=== PATIENT | male | born 1995 | race African-American/Black ===

== ENCOUNTER 2017-04-10 15:46 | Emergency (ER) | payer OTHER ==
[2017-04-10 17:21] LABS: BASOPHILS 0.4 %; BASOPHILS ABSOLUTE 0.03 10/3/uL (0.0-0.16); EOSINOPHILS 3.6 %; EOSINOPHILS ABSOLUTE 0.29 10/3/uL (0.0-0.53); ER CBC TAT 0 Hrs 08 Mins; HEMATOCRIT 41.4 % (40.0-51.0); HEMOGLOBIN 14.1 g/dL (13.6-17.8); IMMATURE GRANULOCYTES 0.1 %; IMMATURE GRANULOCYTES ABSOLUTE 0.01 10/3/uL (0.0-0.11); LYMPHOCYTES 28.1 %; LYMPHOCYTES ABSOLUTE 2.29 10/3/uL (0.67-4.30); MANUAL DIFF NO %; MEAN CORPUS HGB CONC 34.1 g/dL (32.0-36.0); MEAN CORPUSCULAR VOLUME 88.1 fL (80-100); MEAN PLATELET VOLUME 11.9 fL (9.2-13.0); MONOCYTES 8.5 %; MONOCYTES ABSOLUTE 0.69 10/3/uL (0.21-1.20); NEUTROPHILS 59.3 %; NEUTROPHILS ABSOLUTE 4.85 10/3/uL (2.02-8.40); PLATELET COUNT 176 10/3/uL (150-400); RBC DISTRIBUTION WIDTH 14.5 % (12.0-16.0); WHITE BLOOD CELLS 8.2 10/3/uL (4.5-10.5)
[2017-04-10 17:36] LABS: A/G RATIO 1.1 (0.7-1.9); ALBUMIN 4.2 G/DL (3.5-5.0); ALKALINE PHOSPHATASE 62 U/L (45-117); BUN (BLOOD UREA NITROGEN) 12 MG/DL (6-23); CALCIUM, SERUM 9.3 MG/DL (8.5-10.4); CO2 (CARBON DIOXIDE) 20 MMOL/L (24-34); CREATININE 1.14 MG/DL (0.70-1.30); GFR AFRICAN AMERICAN 105 ML/MIN (>=60); GFR NON AFRICAN AMERICAN 91 ML/MIN (>=60); GLOBULIN 3.8 G/DL (2.5-4.1); GLUCOSE, SERUM 80 MG/DL (60-99); SGOT(AST) 12 U/L (5-40); SGPT(ALT) 15 U/L (5-65); TOTAL BILIRUBIN 0.4 MG/DL (0-1.2)
[2017-04-10 17:47] LABS: CHLORIDE, SERUM 109 MMOL/L (96-112); POTASSIUM, SERUM 3.5 MMOL/L (3.5-5.3); SODIUM, SERUM 140 MMOL/L (135-148)
== END 2017-04-10 19:26 | disposition home or self-care (01) ==
LOC: ER 15:46
PROVIDERS: Emergency Medicine
DX: R11.2 Nausea with vomiting, unspecified (principal); R79.89 Other specified abnormal findings of blood chemistry; J45.909 Unspecified asthma, uncomplicated; F17.200 Nicotine dependence, unspecified, uncomplicated
CPT/HCPCS: 80053; 80164; 83690; 85025; 96374; 99284; J2405